=== PATIENT | female | born 1980 | race African-American/Black ===

== ENCOUNTER → 2017-01-11 | Outpatient (CLI) | payer OTHER | LOC: HPND 08:12 | PROVIDERS: ATTEND Obstetrics & Gynecology | DX: O09.521 Supervision of elderly multigravida, first trimester (principal) | CPT/HCPCS: 36415; 76813 ==

== ENCOUNTER → 2017-02-08 | Outpatient (CLI) | payer OTHER | LOC: HPND 13:00 | PROVIDERS: ATTEND Obstetrics & Gynecology | DX: O09.522 Supervision of elderly multigravida, second trimester (principal); O34.12 Maternal care for benign tumor of corpus uteri, second trimester; O34.212 Maternal care for vertical scar from previous cesarean delivery | CPT/HCPCS: 76811 ==

== ENCOUNTER → 2017-03-16 | Outpatient (CLI) | payer OTHER | LOC: HPND 09:18 | PROVIDERS: ATTEND Obstetrics & Gynecology | DX: O09.522 Supervision of elderly multigravida, second trimester (principal); O34.12 Maternal care for benign tumor of corpus uteri, second trimester; O34.211 Maternal care for low transverse scar from previous cesarean delivery | CPT/HCPCS: 76816 ==

== ENCOUNTER → 2017-04-19 | Outpatient (CLI) | payer OTHER | LOC: HPND 12:53 | PROVIDERS: ATTEND Obstetrics & Gynecology | DX: O34.29 Maternal care due to uterine scar from other previous surgery (principal); O09.522 Supervision of elderly multigravida, second trimester; R20.8 Other disturbances of skin sensation; R10.9 Unspecified abdominal pain; O26.899 Other specified pregnancy related conditions, unspecified trimester; Z87.59 Personal history of other complications of pregnancy, childbirth and the puerperium; Z98.890 Other specified postprocedural states | CPT/HCPCS: 76816; 76817 ==

== ENCOUNTER → 2017-04-19 | Outpatient (CLI) | payer OTHER ==
[2017-04-19 15:47] LABS: AUTOMATED NEUTROPHIL # 7.2 TH/MM3 (1.8-7.7); BASOPHIL % 0.5 % (0.0-2.0); EOSINOPHIL # 0.2 TH/MM3 (0-0.4); EOSINOPHIL % 2.1 % (0.0-4.0); HEMATOCRIT 30.5 % (35.0-46.0); HEMOGLOBIN 10.9 GM/DL (11.6-15.3); LYMPH % 18.4 % (9.0-44.0); LYMPHOCYTE # 1.8 TH/MM3 (1.0-4.8); MEAN CELL VOLUME 91.6 FL (80.0-100.0); MEAN CORPUSCULAR HEMOGLOBIN 32.8 PG (27.0-34.0); MEAN CORPUSCULAR HGB CONC 35.8 % (32.0-36.0); MONO % 7.1 % (0.0-8.0); MONOCYTE # 0.7 TH/MM3 (0-0.9); NEUT % 71.9 % (16.0-70.0); PLATELET COUNT 242 TH/MM3 (150-450); RED BLOOD COUNT 3.33 MIL/MM3 (4.00-5.30); RED CELL DISTRIBUTION WIDTH 12.4 % (11.6-17.2); WHITE BLOOD COUNT 9.9 TH/MM3 (4.0-11.0)
== END ==
LOC: CLAB 14:37
PROVIDERS: ATTEND Obstetrics & Gynecology
DX: O09.522 Supervision of elderly multigravida, second trimester (principal)
CPT/HCPCS: 85025; 86703

== ENCOUNTER 2017-05-17 14:58 | Emergency (ER) | payer OTHER ==
--- NOTE | 2017-05-17 16:04 | PD ---
HPI Chief Complaint Watery vaginal discharge yesterday at 11 AM Date Seen: May 17, 2017 Time Seen: 16:00 Travel History International Travel<30 Days: No Contact w/Intl Traveler<30Days: No Known Affected Area: No History of Present Illness HPI 36-year-old who is at 30 weeks gestation and 5 days comes in complaining of watery discharge yesterday at 11 AM 1. Patient was seen in perinatology today for a follow-up beta growth ultrasound which was normal and showed a normal amniotic fluid index. Patient has not continued to have discharge at this time and denies symptoms of labor. She is due to have a section as a repeat at 37 weeks. Weeks Gestation: 30 Para: 3 : 5 History Past Medical History Medical History: Denies Significant Hx Obstetric History Obstetric History section 3 Myomectomy Family History Family History: Negative Social History Alcohol Use: No Tobacco Use: No Substance Abuse: No Allergies-Medications (Allergen,Severity, Reaction): Coded Allergies: penicillin G (Unverified Allergy, Severe, Hives, 11/08/16) Home Meds No Active Prescriptions or Reported Meds Review of Systems Except as stated in HPI: all other systems reviewed are Neg Physical Exam Narrative GENERAL: Well-nourished, well-developed patient. SKIN: Warm and dry. HEAD: Normocephalic and atraumatic. EYES: No scleral icterus. No injection or drainage. ENT: No nasal drainage noted. Mucous membranes pink. Airway patent. NECK: Supple, trachea midline. No JVD. CARDIOVASCULAR: Regular rate and rhythm without murmurs, gallops, or rubs. RESPIRATORY: Breath sounds equal bilaterally. No accessory muscle use. ABDOMEN/GI: Abdomen soft, non-tender, bowel sounds present, no rebound, no guarding Gravid to [-30] weeks size Fundal Height: [-] GENITOURINARY: External Genitalia: intact and normal in appearance BUS glands: [Normal-] Cervix: [-Posterior] Dilatation: [-Closed] Effacement: [-0] Station: [High-] Presentation: [-Vertex] Membranes: [intact or ruptured] and each are negative, amniotic fluid index normal Uterine Contractions: [-] FHT's: Category: [1-] Baseline: [140-] Reactive: [Moderate-] Variability: [-Moderate] Decels: [-] Absent EXTREMITIES: No cyanosis or edema. BACK: Nontender without obvious deformity. No CVA tenderness. NEUROLOGICAL: Awake and alert. Motor and sensory grossly within normal limits. Five out of 5 muscle strength in all muscle groups. Normal speech. Data Data Vital Signs Reviewed: Yes MDM Medical Record Reviewed: Yes Plan 36-year-old with 3 prior sections at 30 weeks 5 days with intact amniotic membranes, normal vaginal examination, negative amnisure Diagnosis Diagnosis: Primary Impression: 30 weeks gestation of Additional Impressions: Previous section complicating , antepartum condition or complication History of myomectomy Uterine fibroids affecting in third trimester Disposition: DISCHARGE HOME Scripts No Active Prescriptions or Reported Meds Mary Cano MD May 17, 2017 16:04
== END 2017-05-17 17:39 | disposition home or self-care (01) ==
LOC: HOBED 14:58
DX: O26.93 Pregnancy related conditions, unspecified, third trimester (principal); O34.219 Maternal care for unspecified type scar from previous cesarean delivery; O34.13 Maternal care for benign tumor of corpus uteri, third trimester; Z3A.30 30 weeks gestation of pregnancy
CPT/HCPCS: 84112; 99284

== ENCOUNTER → 2017-05-17 | Outpatient (CLI) | payer OTHER | LOC: HPND 14:27 | PROVIDERS: ATTEND Obstetrics & Gynecology | DX: O09.522 Supervision of elderly multigravida, second trimester (principal); O09.529 Supervision of elderly multigravida, unspecified trimester; Z36.89 Encounter for other specified antenatal screening | CPT/HCPCS: 76816 ==